=== PATIENT | male | born 1935 | race Caucasian/White ===

== ENCOUNTER → 2017-04-25 | Outpatient (CLI) | payer MEDICARE, BC ==
--- NOTE | 2017-04-25 19:03 | RAD ---
EXAM: Right Upper extremity venous Doppler 04/25/2017 HISTORY: Right upper extremity swelling at the antecubital area where there was a previous catheter COMPARISON: None. FINDINGS: Grayscale and Doppler analysis of the Right Upper extremity veins including serial graded compression and augmentation. Right internal jugular, medial, mid and lateral subclavian vein, axillary veins are patent with normal color Doppler imaging. Cephalic vein is not visualized. The visualized portions of the basilic and brachial veins are patent with normal color Doppler imaging. At the level of the antecubital fossa, there is a nearly occlusive thrombus likely involving the median cubital vein with adjacent echogenic stranding. IMPRESSION: At the antecubital fossa, nearly occlusive thrombus likely involving the median cubital vein with adjacent stranding, thrombophlebitis. Electronically signed by: Eze Cavazos MD (04/25/2017 7:00 PM) [id number]
== END | disposition home or self-care (01) ==
LOC: US 17:00
PROVIDERS: ATTEND Family Medicine
DX: I80.8 Phlebitis and thrombophlebitis of other sites (principal)
CPT/HCPCS: 93971

== ENCOUNTER → 2020-10-02 | Outpatient (CLI) | payer MEDICARE ==
--- NOTE | 2020-10-02 15:54 | RAD ---
EXAM: Chest, 2 views. HISTORY: Cough. Shortness of breath. COMPARISON: None. FINDINGS: 2 views of the chest are obtained. There is no infiltrate, pleural effusion or pneumothorax . The heart is normal in size. There is a left shoulder arthroplasty in expected position. There is c ervical spinal fusion instrumentation. IMPRESSION: No acute pulmonary finding. Electronically signed by: Fouzia Li MD (10/02/2020 3:52 PM) [id number]
== END ==
LOC: RAD 15:41
PROVIDERS: ATTEND Family Medicine
DX: R05 Cough (principal); R06.02 Shortness of breath; R53.83 Other fatigue
CPT/HCPCS: 71046

== ENCOUNTER → 2020-10-10 | Outpatient (CLI) | payer MEDICARE ==
--- NOTE | 2020-10-10 11:29 | RAD ---
CT THORAX WO History: Cough. Comparison: Chest x-ray 10/02/2020, CT chest 05/25/2020. Technique: Noncontrast CT of the chest. Findings: Assessment is limited by lack of IV contrast. Aorta and Great Vessels: No aneurysm of the aortic arch or thoracic aorta is seen. Moderate to heavy atherosclerotic calcification. Thyroid: No significant abnormalities. Mediastinum and mirza: No mediastinal masses or adenopathy is seen. Esophagus: The visualized esophagus is normal. Heart: The heart is normal in size. Trace pericardial fluid. Heavy coronary artery calcification. Trachea: Mild bronchial wall thickening. No significant bronchiectasis. Lungs: Moderate central and paraseptal emphysematous change. Subtle areas of groundglass attenuation including, the right upper lobe along the fissure, anterior left upper lobe and posterior right lower lobe. Pleural Space: There is no pneumothorax or pleural effusion. Upper Abdomen: The gallbladder appears surgically absent. Fatty atrophy of the pancreas. Osseous Structures and Soft Tissues: Partially visualized ACDF and left shoulder arthroplasty. Healed posterior left upper rib fracture deformities. Impression: 1. Moderate emphysematous change with scattered areas of very subtle groundglass opacity which may r epresent infectious process. Recommend follow-up CT chest in 3 months following appropriate course of treatment. ------ Exposure: One or more of the following individualized dose reduction techniques were utilized for thi s examination: 1. Automated exposure control 2. Adjustment of the mA and/or kV according to patient size 3. Use of iterative reconstruction technique. Electronically signed by: Augie Wiggins MD (10/10/2020 11:26 AM) [facility]
== END ==
LOC: CT 10:53
PROVIDERS: ATTEND Family Medicine
DX: R91.8 Other nonspecific abnormal finding of lung field (principal); J43.9 Emphysema, unspecified; K86.89 Other specified diseases of pancreas; Z96.612 Presence of left artificial shoulder joint
CPT/HCPCS: 71250

== ENCOUNTER 2020-10-23 22:36 | Emergency (ER) | payer MEDICARE ==
[~2020-10-23] VITALS: Ht 182.9 cm; Wt 77.2 kg
--- NOTE | 2020-10-24 | RAD ---
XR CHEST 2V History: Reason: covid, cough, weakness / Comparison: Two-view chest October 02, 2020. Findings: The cardiomediastinal silhouette is normal. There are interstitial opacities that are bilateral perih ilar and in the right upper lobe. These are new from prior study. No pleural effusion or pneumothorax is seen. There is no acute bone abnormality. There is cervical spine fusion hardware, partially seen . There is left shoulder arthroplasty, partially seen. IMPRESSION: Right upper lobe and bilateral perihilar interstitial opacities are new from prior study and may be i nfectious/inflammatory including atypical/viral pneumonitis. Electronically signed by: Bryan Armendariz MD (10/23/2020 11:58 PM) [facility]
--- NOTE | 2020-10-24 00:11 | PHYS DOC ---
General Adult EDM: Chief Complaint: COUGH HPI: HPI: 85-year-old male presents because his told him to. Patient was diagnosed with COVID-19 a few days ago. He is feeling fatigued and her decreased appetite. He denies significant shortness of breath. He had some lab work done by his primary care physician who set of blood count was a little low. His was concerned and talked to the patient's primary care physician who was concerned the patient may have developed pneumonia in addition to COVID-19 and advised to come to emergency room for evaluation. Patient tells me he feels okay considering. Denies fever or chills. No significant cough. Review of Systems: Review of Systems: Constitutional: Denies fever or chills. Fatigue, decreased appetite Eyes: Denies change in visual acuity HENT: Denies nasal congestion or sore throat Respiratory: mild shortness of breath Cardiovascular: Denies chest pain or edema GI: Denies abdominal pain, nausea, vomiting, bloody stools or diarrhea : Denies dysuria Musculoskeletal: Denies back pain or joint pain Integument: Denies rash Neurologic: Denies headache, focal weakness or sensory changes Endocrine: Denies polyuria or polydipsia Lymphatic: Denies swollen glands Psychiatric: Denies depression or anxiety Physical Exam: PE: Constitutional: Well developed, well nourished, no acute distress, non-toxic appearance. [] HENT: Normocephalic, atraumatic, bilateral external ears normal, oropharynx moist, no oral exudates, nose normal. [] Eyes: PERRLA, EOMI, conjunctiva normal, no discharge. [] Neck: Normal range of motion, no tenderness, supple, no stridor. [] Cardiovascular:Heart rate regular rhythm, no murmur [] Lungs & Thorax: Bilateral breath sounds clear to auscultation [] Abdomen: Bowel sounds normal, soft, no tenderness, no masses, no pulsatile masses. [] Skin: Warm, dry, no erythema, no rash. [] Back: No tenderness, no CVA tenderness. [] Extremities: No tenderness, no cyanosis, no clubbing, ROM intact, no edema. [] Neurologic: Alert and oriented X 3, normal motor function, normal sensory function, no focal deficits noted. [] Psychologic: Affect normal, judgement normal, mood normal. [] EKG: EKG: [] Radiology/Procedures: Radiology/Procedures: [] Impressions: XR CHEST 2V History: Reason: covid, cough, weakness / Comparison: Two-view chest October 02, 2020. Findings: The cardiomediastinal silhouette is normal. There are interstitial opacities that are bilateral perihilar and in the right upper lobe. These are new from prior study. No pleural effusion or pneumothorax is seen. There is no acute bone abnormality. There is cervical spine fusion hardware, partially seen. There is left shoulder arthroplasty, partially seen. IMPRESSION: Right upper lobe and bilateral perihilar interstitial opacities are new from prior study and may be infectious/inflammatory including atypical/viral pneumonitis. Electronically signed by: Bryan Johnston MD (10/23/2020 11:58 PM) [facility] DICTATED AND SIGNED BY: BRYAN JOHNSTON MD DATE: 10/23/20 [id number] CC: BRITANY ORTIZ MD; MIREYA WOODARD DO ~MTH0 0 Heart Score: C/O Chest Pain: No Risk Factors: Risk Factors: DM, Current or recent (<one month) smoker, HTN, HLP, family history of CAD, obesity. Risk Scores: Score 0 - 3: 2.5% MACE over next 6 weeks - Discharge Home Score 4 - 6: 20.3% MACE over next 6 weeks - Admit for Clinical Observation Score 7 - 10: 72.7% MACE over next 6 weeks - Early Invasive Strategies Course & Med Decision Making: Course & Med Decision Making Pertinent Labs and Imaging studies reviewed. (See chart for details) The patient's chest x-ray is suggestive of pneumonia though atypical or viral seems more likely. The patient is positive for COVID-19. I will still cover him with a gram of Rocephin and 500 mg of azithromycin IV in the ED. We will discharge him with 4 more days of azithromycin. Patient would prefer not to stay in the hospital. His oxygen dips down to 88 or 89 when he is laying still. As soon as he starts talking it increases to 94%. The patient about 10 days out from his Covid diagnosis. I do believe he has to be admitted to the hospital. He would prefer not to be. He does live at home with his who can make sure he does not get worse. I believe it is reasonable for him to try going back home. He is stable for discharge at this time. [] Philippeon Disclaimer: Dragaiden Disclaimer: This electronic medical record was generated, in whole or in part, using a voice recognition dictation system. Departure Departure: Impression: Primary Impression: Pneumonia involving right lung Additional Impression: COVID-19 Disposition: HOME / SELF CARE / HOMELESS Condition: STABLE Referrals: BRITANY ORTIZ MD (PCP) Patient Instructions: Pneumonia, Adult, [id number] Scripts Azithromycin (AZITHROMYCIN TABLET) 250 Mg Tablet 250 MG PO DAILY for ANTI-BIOTIC for 4 Days, #4 TAB 0 Refills Prov: MIREYA WOODARD DO 10/24/20 MIREYA WOODARD DO October 24, 2020 00:11
[2020-10-24 01:02] LABS: BASO % 0 % (0-3); EOS % 0 % (0-3); HEMATOCRIT 34.7 % (39.0-53.0); HEMOGLOBIN 11.4 g/dL (13.0-17.5); LYMPH # 0.8 x10^3/uL (1.0-4.8); LYMPH % 7 % (24-48); MEAN CORPUSCULAR HEMOGLOBIN 30 pg (25-35); MEAN CORPUSCULAR HGB CONC 33 g/dL (31-37); MEAN CORPUSCULAR VOLUME 92 fL (79-100); MONO # 0.9 x10^3/uL (0.0-1.1); MONO % 8 % (0-9); NEUT # 9.5 x10^3uL (1.8-7.7); NEUT % 84 % (31-73); PLATELET COUNT 321 x10^3/uL (140-400); RED BLOOD COUNT 3.78 x10^6/uL (4.30-5.70); RED CELL DISTRIBUTION WIDTH 13.6 % (11.5-14.5); WHITE BLOOD COUNT 11.3 x10^3/uL (4.0-11.0)
[2020-10-24 01:08] LABS: CALCIUM 8.8 mg/dL (8.5-10.1); CREATININE 1.5 mg/dL (0.7-1.3); GFR 44.6; POTASSIUM 4.3 mmol/L (3.5-5.1)
[2020-10-24 01:15] LABS: ALBUMIN 2.8 g/dL (3.4-5.0); ALBUMIN/GLOBULIN RATIO 0.7 (1.0-1.7); TOTAL BILIRUBIN 0.6 mg/dL (0.2-1.0); TOTAL PROTEIN 6.8 g/dL (6.4-8.2)
[2020-10-24] MEDS ORDERED: AZITHROMYCIN 500 MG in IV NORMAL SALINE 250ML 250 ML IV ONE (01:30)
[2020-10-24] MEDS ORDERED: AZIT250T6 PO (01:31)
[2020-10-24] MEDS ORDERED: AZITHROMYCIN 500 MG VIAL. IV ONE (01:57)
[2020-10-24] MEDS ORDERED: IV NORMAL SALINE 50ML 50 ML ONE (01:57)
[2020-10-24] MEDS ORDERED: IV NORMAL SALINE 250ML 250 ML ONE (01:57)
[2020-10-24] MEDS ORDERED: cefTRIAXone SODIUM 1 GM VIAL ONE (01:58)
[2020-10-24 03:15] VITALS: BP 121/62
== END 2020-10-24 03:25 | disposition home or self-care (01) ==
LOC: ER 22:36
DX: U07.1 COVID-19 (principal); J12.82 Pneumonia due to coronavirus disease 2019
CPT/HCPCS: 36415; 71046; 80053; 85025; 96365; 96375; 99285; J0456; J0696; J7050

== ENCOUNTER 2020-10-26 14:25 | Inpatient (IN) | payer MEDICARE ==
[~2020-10-26] VITALS: Ht 182.9 cm; Wt 76.6 kg
[~2020-10-26 14:25] MED LIST: AZIT250T6 PO
--- NOTE | 2020-10-26 14:30 | NUR ---
Pt arrived on unit, direct admission from [facility] office, pt reports being covid positive according to MED. However, Dr Miguel office has no documentation that correlates with this finding. Pt is a/ox4, vital signs stable, 2Lnc placed for comfort. Dr Jacobson pagebrando for orders, will await on orders.
[2020-10-26 15:00] VITALS: BP 121/68
[2020-10-26] MEDS ORDERED: ACETAMINOPHEN 325 MG TABLET PO PRN (16:00)
[2020-10-26] MEDS ORDERED: ONDANSETRON PF 4 MG/2 ML VIAL. IVP PRN (16:00)
[2020-10-26] MEDS ORDERED: TRAM50TA PO (16:07)
[2020-10-26] MEDS ORDERED: MECO10005 PO (16:07)
[2020-10-26] MEDS ORDERED: VITA400T6 PO (16:07)
[2020-10-26] MEDS ORDERED: ATORVASTATIN CA80 MG PO (16:07)
[2020-10-26] MEDS ORDERED: METO25TA4 PO (16:07)
[2020-10-26] MEDS ORDERED: VIT1TABL96 PO (16:07)
[2020-10-26] MEDS ORDERED: LANS15CA78 PO (16:07)
[2020-10-26] MEDS ORDERED: CHOL-5 PO (16:07)
[2020-10-26] MEDS ORDERED: ZOLP12.56 PO (16:07)
[2020-10-26] MEDS ORDERED: ASPI325T8 PO (16:07)
[2020-10-26] MEDS ORDERED: CLON0.5T4 PO (16:15)
[2020-10-26] MEDS ORDERED: traMADol 50 MG TABLET PO PRN (16:15)
[2020-10-26 16:39] LABS: BASO # 0.1 x10^3/uL (0.0-0.2); BASO % 1 % (0-3); EOS % 0 % (0-3); HEMATOCRIT 34.5 % (39.0-53.0); HEMOGLOBIN 11.5 g/dL (13.0-17.5); LYMPH # 0.8 x10^3/uL (1.0-4.8); LYMPH % 7 % (24-48); MEAN CORPUSCULAR HEMOGLOBIN 30 pg (25-35); MEAN CORPUSCULAR HGB CONC 33 g/dL (31-37); MEAN CORPUSCULAR VOLUME 91 fL (79-100); MONO # 1.5 x10^3/uL (0.0-1.1); MONO % 13 % (0-9); NEUT # 8.5 x10^3uL (1.8-7.7); NEUT % 78 % (31-73); PLATELET COUNT 331 x10^3/uL (140-400); RED BLOOD COUNT 3.78 x10^6/uL (4.30-5.70); RED CELL DISTRIBUTION WIDTH 13.7 % (11.5-14.5); WHITE BLOOD COUNT 10.9 x10^3/uL (4.0-11.0)
[2020-10-26 16:58] LABS: CREATININE 1.5 mg/dL (0.7-1.3); GFR 44.6; POTASSIUM 4.4 mmol/L (3.5-5.1)
[2020-10-26 17:10] LABS: % LYMPHS 14 % (24-48); % MONOS 7 % (0-10); % SEGS 79 % (35-66); PLT ESTIMATE ADEQUATE (ADEQUATE)
[2020-10-26 19:55] LABS: BILIRUBIN,URINE NEG (NEG); CLARITY,URINE CLEAR; COLOR,URINE YELLOW; GLUCOSE,URINE 100 mg/dL (NEG); NITRITE,URINE NEG (NEG)
[2020-10-26 19:56] LABS: BACTERIA,URINE 0 /HPF (0-FEW); RBC,URINE 0 /HPF (0-2); SQUAMOUS EPITHELIAL CELL,UR OCC /LPF; WBC,URINE 0 /HPF (0-4)
[2020-10-26] MEDS: LANSOPRAZOLE 30 MG TAB.RAP.DR PO SCH (19:56)
[2020-10-26] MEDS: DOCUSATE SODIUM 100 MG CAPSULE PO SCH (19:57)
[2020-10-26] MEDS: METOPROLOL TART IMMED RELEASE 25 MG TABLET. PO SCH (19:57)
[2020-10-26] MEDS: ZOLPIDEM 5 MG TABLET. PO PRN ×2 (19:58→20:54)
[2020-10-26] MEDS: ATORVASTATIN CALCIUM 20 MG TABLET PO SCH (19:58)
[2020-10-26 19:59] VITALS: BP 118/64
[2020-10-26] MEDS: AZITHROMYCIN 500 MG in IV NORMAL SALINE 250ML 250 ML IV SCH (20:48)
[2020-10-26 22:12] VITALS: BP 108/59
[2020-10-26 23:03] VITALS: BP 113/64
[2020-10-27 05:43] VITALS: BP 120/68
[2020-10-27] MEDS: METOPROLOL TART IMMED RELEASE 25 MG TABLET. PO SCH ×2 (07:57→21:10)
[2020-10-27] MEDS: LACTOBACILLUS RHAMNOSUS GG 1 CAPSULE. PO SCH ×2 (07:57→21:10)
[2020-10-27] MEDS: LANSOPRAZOLE 30 MG TAB.RAP.DR PO SCH ×2 (07:57→21:10)
[2020-10-27] MEDS: ASPIRIN 325 MG TABLET PO SCH (07:57)
[2020-10-27] MEDS: DOCUSATE SODIUM 100 MG CAPSULE PO SCH ×2 (07:57→21:10)
--- NOTE | 2020-10-27 09:45 | HP ---
ADMIT DATE: 10/26/2020 ATTENDING PHYSICIAN: Dr. Jacobson. CHIEF COMPLAINT: Shortness of breath. HISTORY OF PRESENT ILLNESS: The patient is an active 85-year-old gentleman kindly referred by Dr. Oleksandr Ortiz. He has been sick for 4 days and was seen in the ED on 10/23, diagnosed with community-acquired pneumonia, sent home with oral antibiotics. He is not any better, very weak. He already has supplemental oxygen for underlying COPD. I spoke with Dr. Ortiz, we decided to admit the patient for pneumonia and clinical symptoms of weakness and shortness of breath, refractory to outpatient care. PAST MEDICAL HISTORY: Significant for COPD, hypertension, and hyperlipidemia. ALLERGIES: HE HAS ALLERGIES TO SHRIMP. No drug allergies. SOCIAL HISTORY: He had been a smoker, unfiltered Camels for many years. He has since quit. He drinks socially. 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 He is active, lives with his , children are grown. FAMILY HISTORY: Noncontributory. CURRENT MEDICATIONS: Include metoprolol 25 mg b.i.d., aspirin, tramadol p.r.n., Klonopin, zolpidem at bedtime, Prevacid, vitamin B12, cholecalciferol, multivitamin and atorvastatin. REVIEW OF SYSTEMS: Significant for generalized weakness, dyspnea with minimal exertion. He had his COVID shots. There was 1 positive swab. We will re-swab him. The chest x-ray does not appear to be COVID. All other systems reviewed and turned to be negative. PHYSICAL EXAMINATION: GENERAL: When I saw him, this is a very pleasant, alert gentleman appearing younger than his stated age. INITIAL VITAL SIGNS: Showed a blood pressure 108/59, pulse is 89 and regular. He was afebrile, oxygen saturation 96% on 2 liters by nasal cannula. HEENT: Head is without trauma. Pupils are reactive. Sclerae nonicteric. Oropharynx clear. NECK: Supple. No bruits or stridor. LUNGS: Coarse rhonchi at the right mid lung field. CARDIOVASCULAR: Showed regular heart tones. No gallops. ABDOMEN: Soft. EXTREMITIES: Without edema. NEUROLOGIC: Focally intact. SKIN: Warm and dry. PERTINENT LABORATORY DATA: His hemoglobin is 11.5 g/dL with a white count of 10,900. Electrolytes within normal range. Creatinine is 1.5 mg/dL. Nonfasting blood sugar 158. A rapid serology was negative on 10/26 for coronavirus. Urinalysis was clear. ASSESSMENT: 1. An 85-year-old gentleman with community-acquired pneumonia, right upper lobe, refractory to outpatient care. 2. Underlying chronic obstructive pulmonary disease, oxygen dependent. 3. Hypertension. He may be mildly dehydrated. 4. Gastroesophageal reflux disease. 5. Hyperlipidemia. PLAN: 1. Admit to the inpatient unit. 2. IV antibiotics as ordered. 3. Nebulizer therapy. 4. Supplemental oxygen. 5. Diet as tolerated. SARAH DR: Seth TID: [id number] CC: OLEKSANDR ORTIZ MD
--- NOTE | 2020-10-27 10:33 | RAD ---
EXAMINATION: Chest radiograph. VIEWS: Single AP view COMPARISON: 10/23/2020 INDICATION: Pneumonia FINDINGS: Normal cardiomediastinal silhouette. Unchanged right upper lobe and worsened left upper lobe airspace opacities. New patchy airspace opacity in the right lung base. No pleural effusion or pneumothorax. No acute osseous process. Left shoulder prosthesis. IMPRESSION: 1. Unchanged right upper lobe and worsened left upper lobe airspace opacities. 2. New patchy airspace opacity in the right lung base. Electronically signed by: Pretty Hester MD (10/27/2020 10:30 AM) [id number]
[2020-10-27 11:31] VITALS: BP 116/72
[2020-10-27] MEDS ORDERED: MAGNESIUM CITRATE 296 ML SOLUTION. PO ONE (12:45)
[2020-10-27 15:12] VITALS: BP 113/73
[2020-10-27] MEDS ORDERED: ENOXAPARIN 30 MG/0.3 ML SYRINGE. SQ SCH (15:30)
[2020-10-27] MEDS: DEXAMETHASONE SOD PHOS 4 MG/ML VIAL. IVP SCH (15:37)
[2020-10-27 19:00] VITALS: BP 108/62
[2020-10-27] MEDS: AZITHROMYCIN 500 MG in IV NORMAL SALINE 250ML 250 ML IV SCH (21:09)
[2020-10-27] MEDS: ATORVASTATIN CALCIUM 20 MG TABLET PO SCH (21:10)
[2020-10-27 22:22] VITALS: BP 119/68
[2020-10-28] MEDS: METOPROLOL TART IMMED RELEASE 25 MG TABLET. PO SCH (09:00)
[2020-10-28] MEDS: LACTOBACILLUS RHAMNOSUS GG 1 CAPSULE. PO SCH (09:00)
[2020-10-28] MEDS: DEXAMETHASONE SOD PHOS 4 MG/ML VIAL. IVP SCH (09:00)
[2020-10-28] MEDS: ASPIRIN 325 MG TABLET PO SCH (09:00)
[2020-10-28] MEDS: LANSOPRAZOLE 30 MG TAB.RAP.DR PO SCH (09:00)
[2020-10-28] MEDS: DOCUSATE SODIUM 100 MG CAPSULE PO SCH (09:00)
[2020-10-28 09:43] VITALS: BP 143/78
--- NOTE | 2020-10-28 14:19 | DS ---
DATE OF DISCHARGE: 10/28/2020 ATTENDING PHYSICIAN: Dr. Jacobson. FINAL DISCHARGE DIAGNOSES: 1. Community-acquired pneumonia, bilateral. 2. Chronic obstructive pulmonary disease, oxygen dependent. 3. Recent positive swab for coronavirus. He has had his vaccines. 4. Hypertension. 5. Gastroesophageal reflux disease. 6. Hyperlipidemia. HISTORY AND PHYSICAL: The patient is a pleasant 85-year-old gentleman, fairly active. He was weak, tired. He had infiltrates consistent with bacterial pneumonia, although has coronavirus swab still tested positive. He had a shot 3 months ago. He was admitted then for pneumonia, refractory to outpatient therapy. PHYSICAL EXAMINATION: Please see the dictated note. PERTINENT LABORATORY AND X-RAY STUDIES: On this admission, his hemoglobin was 11.5 g/dL, white count 10,900. Creatinine was 1.5 mg/dL with BUN of 28. Electrolytes within normal range. Repeat serology for the SARS-CoV-2 coronavirus by PCR was reported positive on admission. COURSE IN THE HOSPITAL: The patient was admitted. He was started on empiric Rocephin, Zithromax along with Decadron and Lovenox. Home meds were continued. He did well. He already has supplemental oxygen. We were able to maintain saturations on 2 liters, which is his baseline. On the third hospital day, his blood pressure, vital signs were stable. He was afebrile. His oxygen saturation 96% on 2 liters. His lungs had good breath sounds. A followup x-ray was reviewed and it showed a persistent upper lobe infiltrates, which is lagging the clinical response. He did receive 3 full days of IV antibiotics. He wanted to go home. I felt this is reasonable. I recommended 7 more days of cephalexin 500 mg p.o. t.i.d., Zithromax 500 mg 1 p.o. daily for 7 more days and continuation of home meds including the following: He should continue his Ambien at bedtime, aspirin daily, Lipitor, clonazepam, Prevacid, metoprolol, tramadol, multivitamin and Prevacid. In addition, scripts for antibiotics and another script for Zofran 4 mg every 6 hours p.r.n. nausea. I have asked him to call Dr. Ortiz's office for followup visit in 1 week's time. He was discharged then from our hospital in stable condition with explicit drug and followup care. Total discharge time [address]: Seth TID: [id number] CC: BRITANY ORTIZ MD
== END 2020-10-28 11:26 | disposition home or self-care (01) | DRG 177 ==
LOC: 1 SOUTH 14:25
PROVIDERS: ADMIT Hospitalist; ATTEND Hospitalist
DX: J15.6 Pneumonia due to other Gram-negative bacteria (principal); U07.1 COVID-19; J44.0 Chronic obstructive pulmonary disease with (acute) lower respiratory infection; J15.9 Unspecified bacterial pneumonia; E86.0 Dehydration; E78.5 Hyperlipidemia, unspecified; I10 Essential (primary) hypertension; K21.9 Gastro-esophageal reflux disease without esophagitis; Z79.82 Long term (current) use of aspirin; Z87.891 Personal history of nicotine dependence; Z99.81 Dependence on supplemental oxygen
CPT/HCPCS: 36415; 71045; 80048; 81001; 85007; 85025; 87426; J0456; J0696; J1100; J1650; J2405; J7050; U0003

== ENCOUNTER → 2021-06-07 | Outpatient (CLI) | payer MEDICARE ==
[~2021-06-07] MED LIST changes: +ASPI325T8 PO; +ATORVASTATIN CA80 MG PO; +CHOL-5 PO; +CLON0.5T4 PO; +CONTRAST GIVEN. MC PRN; +IOHEXOL 300 MG/ML 75 ML VIAL. IV ONE; +LANS15CA73 PO; +MECO10005 PO; +METO25TA4 PO; +TRAM50TA PO; +VIT1TABL96 PO; +VITA400T6 PO; +ZOLP12.56 PO
[2021-06-07 14:14] LABS: BASO # 0.1 x10^3/uL (0.0-0.2); BASO % 1 % (0-3); EOS # 0.1 x10^3/uL (0.0-0.7); EOS % 2 % (0-3); HEMATOCRIT 39.2 % (39.0-53.0); HEMOGLOBIN 12.9 g/dL (13.0-17.5); LYMPH # 1.6 x10^3/uL (1.0-4.8); LYMPH % 16 % (24-48); MEAN CORPUSCULAR HEMOGLOBIN 30 pg (25-35); MEAN CORPUSCULAR HGB CONC 33 g/dL (31-37); MEAN CORPUSCULAR VOLUME 92 fL (79-100); MONO # 0.8 x10^3/uL (0.0-1.1); MONO % 8 % (0-9); NEUT # 7.1 x10^3uL (1.8-7.7); NEUT % 73 % (31-73); PLATELET COUNT 326 x10^3/uL (140-400); RED BLOOD COUNT 4.27 x10^6/uL (4.30-5.70); RED CELL DISTRIBUTION WIDTH 13.6 % (11.5-14.5); WHITE BLOOD COUNT 9.6 x10^3/uL (4.0-11.0)
[2021-06-07 14:23] LABS: CALCIUM 8.9 mg/dL (8.5-10.1); CREATININE 1.4 mg/dL (0.7-1.3); GFR 48.2; POTASSIUM 4.4 mmol/L (3.5-5.1)
--- NOTE | 2021-06-07 15:05 | RAD ---
INDICATION: Reason: LLQ PAIN, R/O HERNIA, OMNI 300, 60ml / Spl. Instructions: GFR 48, CREATINE 1.4 / History: COMPARISON: None. TECHNIQUE: Axial CT images were obtained through the abdomen and pelvis with intravenous contrast. One or more of the following individualized dose reduction techniques were utilized for this examinat ion: 1. Automated exposure control; 2. Adjustment of the mA and/or kV according to patient size; 3 . Use of iterative reconstruction technique. FINDINGS: Small pericardial fluid and partially visualized coronary artery calcific atherosclerosis. Vascular: Severe atherosclerotic disease. Mild ectasia infrarenal abdominal aorta. Hepatobiliary: Subcentimeter low-density lesions in the liver. Too small to characterize but commonly from cyst. Pancreas: Small duodenal diverticulum in the region. Fatty atrophy. Spleen: Spleen unremarkable. Renal/Bladder: Urinary bladder has minimal urine within it with prominent wall. No hydronephrosis. Gastrointestinal: Colonic diverticulosis. At the left lower quadrant abutting the inguinal canal ther e is edema to the fat. This is seen adjacent to the sigmoid colon with some diverticula in the area. There is a prominent fat within the left inguinal canal with surrounding edema with this area fat dominick suring up to about 32 mm. Suspected left greater than right fat-containing inguinal hernia. Appendix not well seen. Degenerative changes bilateral hips. Degenerative changes of the spine IMPRESSION: * Fat-containing left greater than right inguinal hernia. There is also edema to the fat seen adjac ent to the left inguinal hernia with a central focus of fat in the area. Possible causes for this wou ld include both fat necrosis/infarct of the fat within the area with another possible cause including epiploic appendagitis from the adjacent sigmoid colon. There is no loops of bowel extending into the hernia sac. Given that this edema is also seen adjacent to the sigmoid colon an alternative cause wo uld include a focus of diverticulitis. * Urinary bladder is only partially distended but there is some prominence the wall. Could be from l ack of distention but real wall thickening from cystitis or bladder wall lesion is not excluded. Electronically signed by: Jose Antonio Fallon MD (06/07/2021 3:03 PM) [id number]
== END ==
LOC: RAD 13:47
PROVIDERS: ATTEND Family Medicine
DX: K40.90 Unilateral inguinal hernia, without obstruction or gangrene, not specified as recurrent (principal); I77.811 Abdominal aortic ectasia; I25.10 Atherosclerotic heart disease of native coronary artery without angina pectoris; K76.89 Other specified diseases of liver; K57.10 Diverticulosis of small intestine without perforation or abscess without bleeding; K86.89 Other specified diseases of pancreas; M16.0 Bilateral primary osteoarthritis of hip; M47.819 Spondylosis without myelopathy or radiculopathy, site unspecified
CPT/HCPCS: 36415; 74177; 80048; 85025; Q9967